=== PATIENT | male | born 1985 | race Caucasian/White ===

== ENCOUNTER → 2017-02-09 | Outpatient (CLI) | payer OTHER | LOC: EMI 10:56 | DX: R53.1 Weakness (principal); R90.89 Other abnormal findings on diagnostic imaging of central nervous system; J32.2 Chronic ethmoidal sinusitis | CPT/HCPCS: 70551 ==

== ENCOUNTER → 2022-04-08 | Outpatient (CLI) | payer OTHER ==
[~2022-04-08] MED LIST: ALBUTEROL1.25 MG/3 INH; ALLER-TEC10 MG PO; ASPIR 8181 MG PO; BACTROBAN OINT22 GM EXT; BENTYL10 MG PO; CITALOPRAM HBR40 MG PO; CO Q-1050 MG PO; DEPAKOTE500 MG PO; FLAGYL500 MG PO; FLEXERIL 10 MG10 MG PO; IBUPROFEN600 MG PO; KEFLEX CAP 500500 MG PO; LIPITOR TAB 2020 MG PO; METOPROLOL TART25 MG PO; NORFLEX 100 MG100 MG PO; PROBIOTIC & AC1 EACH PO; PROTONIX 20 MG20 MG PO; TORADOL 10 MG T10 MG PO; VIMPAT100 MG PO; Voltaren Gel 1 % TOP
== END ==
LOC: LAB 10:48
DX: Z79.899 Other long term (current) drug therapy (principal)
CPT/HCPCS: 36415; G0480

== ENCOUNTER 2022-05-01 17:30 | Emergency (ER) | payer OTHER ==
[2022-05-01 18:29] LABS: HEMOGLOBIN 14.9 gm/dl (14.0-17.5); RED BLOOD COUNT 5.06 M/UL (4.20-5.50); WHITE BLOOD COUNT 8.2 K/UL (4.5-11.0)
[2022-05-01 18:46] LABS: BUN/CREATININE RATIO 16 (0-10)
[2022-05-01] MEDS ORDERED: ZOFRAN 4 MG TAB4 MG PO (21:22)
[2022-05-01] MEDS ORDERED: TORADOL 10 MG T10 MG PO (21:22)
== END 2022-05-01 21:19 | disposition home or self-care (01) ==
LOC: ER1 17:30
PROVIDERS: Physician Assistant Medical
DX: R10.9 Unspecified abdominal pain (principal); F17.290 Nicotine dependence, other tobacco product, uncomplicated
CPT/HCPCS: 80053; 81001; 85025; 96374; 96375; 99284; J1885; J2405; Q9967

== ENCOUNTER 2022-05-04 09:11 | Emergency (ER) | payer OTHER ==
[~2022-05-04 09:11] MED LIST changes: +ZOFRAN 4 MG TAB4 MG PO
== END 2022-05-04 11:03 | disposition home or self-care (01) ==
LOC: ER1 09:11
DX: R33.9 Retention of urine, unspecified (principal); M54.9 Dorsalgia, unspecified; Z90.49 Acquired absence of other specified parts of digestive tract; F17.210 Nicotine dependence, cigarettes, uncomplicated
CPT/HCPCS: 81001; 99283